=== PATIENT | male | born 1995 | race Caucasian/White ===

== ENCOUNTER 2018-01-27 10:16 | Emergency (ER) | payer OTHER ==
[~2018-01-27] VITALS: Ht 182.9 cm; Wt 77.1 kg
[2018-01-27] MEDS ORDERED: KEFLEX500 M2 PO (12:53)
[2018-01-27] MEDS ORDERED: ACETAMINOPHEN-1 EAC1 PO (12:53)
[2018-01-27 13:07] VITALS: BP 120/68
== END 2018-01-27 13:12 | disposition home or self-care (01) ==
LOC: M.ERS 10:16
DX: S60.352A Superficial foreign body of left thumb, initial encounter (principal); W27.8XXA Contact with other nonpowered hand tool, initial encounter; Y93.89 Activity, other specified; Y92.89 Other specified places as the place of occurrence of the external cause; Y99.8 Other external cause status